=== PATIENT | male | born 1990 | race African-American/Black ===

== ENCOUNTER 2017-07-03 13:12 | Emergency (ER) | payer OTHER ==
[~2017-07-03] VITALS: Ht 195.6 cm; Wt 74.8 kg
--- NOTE | 2017-07-03 14:17 | NUR ---
Patient discharged to home in stable conditon. Written and verbal after care instructions given. Patient verbalizes understanding of instructions.
== END 2017-07-03 14:19 | disposition home or self-care (01) ==
LOC: ER 13:12
DX: K08.89 Other specified disorders of teeth and supporting structures (principal)
CPT/HCPCS: 99283; A4663